=== PATIENT | female | born 1970 | race Caucasian/White ===

== ENCOUNTER 2023-06-12 14:12 | Outpatient (AMB) | payer OTHER, SELFPAY ==
--- NOTE | 2023-06-12 14:24 | AM.OFFWIN_ITS ---
Intake Vital Signs 06/12/23 14:29 Weight 192 lb BP 120/100 H Pulse 78 Pulse Source Pulse Oximeter Temp 97.5 F Temp Source Temporal Artery Scan Pulse Oximetry (%) 96 Oxygen Delivery Method Room Air Intake Visit Reasons: [employer] Lymph node/RT side peng Intake Note: pt is here today for lymph node rt side pain and it hurts to swallow started 2 days ago Patient Tobacco Use Status: Never used Tobacco Allergies amoxicillin Allergy (Mild, Verified 06/13/23 09:28) Unknown Do you need a note to return to daycare/school/sports/work: Yes HPI HPI Comments History of Present Illness Details 52 y/o female patient who presents to [facility] in clinic with c/o right ear pain and lymphadenopathy in the anterior cervical chain and preauricular node. FOR[facility] Social History Patient Tobacco Use Status: Never used Tobacco Review of Systems Const All systems reviewed & are unremarkable except as noted in HPI and below Physical Exam Vital Signs: Last Vital Signs Temp 97.5 F 06/12/23 14:29 Pulse 78 06/12/23 14:29 BP 120/100 H 06/12/23 14:29 Pulse Ox 96 06/12/23 14:29 Oxygen Delivery Method Room Air 06/12/23 14:29 Const General: in distress mild HEENT Head: Yes normal to inspection, Yes normocephalic and Yes atraumatic Ears: TM normal on the left and TM abnormal bulging and wth effusion General nose exam: Normal external nose present Face and sinus: Yes normal facial exam Resp Effort & Inspection: normal respiratory effort Auscultation: clear to auscultation bilaterally Cardio Rate: regular rate Rhythm: regular rhythm Assessment & Plan Assessment & Plan (1) Ear pain, right: Code(s): H92.01 - Otalgia, right ear Plan: The patient will take amoxicillin and a short taper dose of prednisone. I told her to go to the emergency department immediately if shortness of breath or unable to swallow water. Medications: New prednisone Take 3 tabs for 3 days, then 2 tabs for 3 days, then 1 tab for 3 days 10 mg PO DIRECTED 20 tabs 0RF amoxicillin 875 mg PO BID 14 tabs 0RF 7 days Coding Level of Care Code Est Pt Level 3 (14268) Diagnoses Ear pain, right H92.01
[2023-06-12 14:29] VITALS: BP 120/100; PULSE 78; TEMP 36.4; O2SAT 96
== END 2023-06-12 14:47 | disposition home or self-care (01) ==
PROVIDERS: Visit Provider Physician Assistant Medical
DX: H92.01 Otalgia, right ear (principal)
CPT/HCPCS: 99213